=== PATIENT | female | born 1945 | race Hispanic/Latino ===

== ENCOUNTER 2019-07-14 16:01 | Emergency (ER) | payer MEDICARE, OTHER ==
[2019-07-14 16:09] VITALS: BP 155/53
--- NOTE | 2019-07-14 17:01 | XRay Report ---
RIGHT SHOULDER, 2 VIEWS INDICATION / CLINICAL INFORMATION: ground level fall, unable to move shoulder. COMPARISON: None available. FINDINGS: There is a nondisplaced fracture through the humeral neck. No evidence for dislocation. Visualized right ribs are intact. The bones are diffusely demineralized. IMPRESSION: Nondisplaced humeral neck fracture. Signer Name: Denia Vidal MD Signed: 07/14/2019 4:56 PM Workstation Name: [id number]
[2019-07-14] MEDS ORDERED: HYDROcodone/ACETAMINOPHEN 5-325 MG TAB PO ONE (17:26)
[2019-07-14] MEDS ORDERED: KETOROLAC 30 MG/1 ML INJ IM ONE (17:45)
--- NOTE | 2019-07-14 17:51 | Emergency Department Report ---
Upper Extremity - HPI Chief Complaint: Fall Stated Complaint: FALL/RT ARM INJURY Time Seen by Provider: 07/14/19 17:25 Upper Extremity: Right Shoulder (Slipped and fell walking in the mall fell onto the right shoulder) Occurred When: Today Mechanism: Fall Severity: moderate Symptoms: Yes Pain with Movement, Yes Limited Range of Movement, No Deformity, No Numbness, No Weakness, No Swelling, No Bruising/Ecchymosis, No Laceration or Abrasion ED Review of Systems ROS: Stated complaint: FALL/RT ARM INJURY Other details as noted in HPI Comment: All other systems reviewed and negative Constitutional: no symptoms reported Cardiovascular: denies: chest pain, palpitations, dyspnea on exertion, syncope Musculoskeletal: other (right shoulder pain ) Neurological: denies: headache, weakness, numbness, paresthesias, confusion ED Past Medical Hx - Past Medical History Previous Medical History?: Yes - Medications Home Medications: Home Medications Medication Instructions Recorded Confirmed Last Taken Type HYDROcodone/APAP 5-325 [Ludell 1 each PO Q4HR PRN #16 tablet 07/14/19 Unknown Rx 5/325] Ibuprofen [Motrin] 600 mg PO Q8H PRN 5 Days #15 tablet 07/14/19 Unknown Rx Upper Extremity Exam - Exam General: Vital signs noted. No distress. Alert and acting appropriately. Head and Torso: No HEENT Abnormality, No Neck Tenderness, No Chest/Lungs Abnormality, No Abdominal Tenderness, No Back Tenderness Shoulder Exam: Yes Shoulder Tenderness (right shoulder), No Clavicle Tenderness, No Normal Range of Motion in Shoulder, No Shoulder Deformity, No AC Joint Tenderness Arm Exam: Yes Arm/Humerus Tenderness, No Arm Deformity Elbow: Yes Normal Range of Motion in Elbow, No Elbow Tenderness, No Elbow Deformity Forearm: No Forearm Tenderness, No Forearm Deformity, No Pain with Pronation, No Pain with Supination Wrist: No Wrist Tenderness, No Normal ROM in Wrist, No Wrist Deformity, No Snuffbox Tenderness, No Pain with Axial Thumb Compression Hand: No Hand Tenderness, No Hand Deformity, No Digit Tenderness, No Normal ROM in Digit(s), No Digit(s) Deformity, No Tendon Dysfunction CMS Exam: Yes Normal Distal Pulses, Yes Normal Capillary Refill, Yes Normal Distal Sensation, No Broken Skin ED Course Vital Signs 07/14/19 16:08 Temperature 98.5 F Pulse Rate 55 L Respiratory 16 Rate Blood Pressure 155/53 O2 Sat by Pulse 97 Oximetry ED Medical Decision Making - Radiology Data Radiology results: report reviewed FINDINGS: There is a nondisplaced fracture through the humeral neck. No evidence for dislocation. Visualized right ribs are intact. The bones are diffusely demineralized. IMPRESSION: Nondisplaced humeral neck fracture. - Medical Decision Making 74 yo female with PMH of HTN taking Lisinopril. Travelling from [place] to [place] with her . She stopped at the mall to walk . While walking in the mall she slipped and fell onto her right shoulder. She denies head injury. No neck or back pain . Xray of right shoulder FINDINGS: There is a nondisplaced fracture through the humeral neck. No evidence for dislocation. Visualized right ribs are intact. IMPRESSION: Nondisplaced humeral neck fracture. Placed right arm in sling and swathe Toradol 30mg and Ludell 5mg po given Pt plans to continue to [place] tonight they are stopping in [place] Pt will be in [place] for 4 weeks she states her has already called hospital in [place] so she can follow up Pt given a copy of xray film placed in right shoulder immobilizer RX for norco and ibuprofen given. All questions answered. and patient verbalizes understanding Pt is well appearing and in generally good health. She is safe to discharge with her and follow up in [place] Critical Care Time: No Critical care attestation.: If time is entered above; I have spent that time in minutes in the direct care of this critically ill patient, excluding procedure time. ED Disposition Clinical Impression: Fx humeral neck Qualifiers: Encounter type: initial encounter Fracture type: closed Laterality: right Qualified Code(s): S42.211A - Unspecified displaced fracture of surgical neck of right humerus, initial encounter for closed fracture Disposition: DC-01 TO HOME OR SELFCARE Is pt being admited?: No Does the pt Need Aspirin: No Condition: Stable Instructions: Arm Fracture in Adults (ED) Additional Instructions: Cool compress on for 15 minutes then off for 15minutes 4 times per day for the next 3 days. Follow up with ORTHOPEDIST SOON POSSIBLE. Take pain medicat ion as prescribed. Prescriptions: Ibuprofen [Motrin] 600 mg PO Q8H PRN 5 Days #15 tablet PRN Reason: Pain HYDROcodone/APAP 5-325 [Ludell 5/325] 1 each PO Q4HR PRN #16 tablet PRN Reason: Pain Referrals: PRIMARY CARE, [Primary Care Provider] - 3-5 Days Time of Disposition: 18:07
== END 2019-07-14 18:31 | disposition home or self-care (01) ==
LOC: ED 16:01
DX: S42.211A Unspecified displaced fracture of surgical neck of right humerus, initial encounter for closed fracture (principal); X58.XXXA Exposure to other specified factors, initial encounter; Y93.89 Activity, other specified; Y92.89 Other specified places as the place of occurrence of the external cause; Y99.8 Other external cause status
CPT/HCPCS: 29105; 73030; 96372; 99283; J1885